=== PATIENT | female | born 1970 | race African-American/Black ===

== ENCOUNTER 2017-10-17 09:44 | Emergency (ER) | payer MEDICAID ==
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
== END 2017-10-17 11:02 | disposition home or self-care (01) ==
LOC: ER 09:44
DX: S06.0X9D Concussion with loss of consciousness of unspecified duration, subsequent encounter (principal); X58.XXXD Exposure to other specified factors, subsequent encounter
CPT/HCPCS: Z7502